=== PATIENT | male | born 1990 | race Caucasian/White ===

== ENCOUNTER 2024-09-26 20:06 | Inpatient (IN) | payer BC ==
[~2024-09-26] VITALS: Ht 185.4 cm; Wt 137.2 kg
--- NOTE | 2024-09-26 20:47 | ELECTROCARDIOGRAPH REPORT ---
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 Rk Scott Measurements Intervals [place] Rate: 143 P: 0 DE: 0 QRS: 93 QRSD: 108 T: -12 QT: 312 QTc: 481 Interpretive Statements Atrial fibrillation Borderline right axis deviation Borderline T abnormalities, inferior leads Borderline prolonged QT interval Baseline wander in lead(s) II,aVR Electronically Signed On 09-26-2024 22:41:[address] Rk Scott Please click the below link to view image of tracing.
[2024-09-26 20:58] LABS: BASOPHILS % (AUTO) 0.4 % (0-1); EOSINOPHILS # (AUTO) 0.2 X10'3 (0-0.9); HEMATOCRIT 45.7 % (42.0-52.0); HEMOGLOBIN 15.6 g/dl (14.0-17.9); LYMPHOCYTES # (AUTO) 2.8 X10'3 (1.1-4.8); MEAN CORPUSCULAR HEMOGLOBIN 29.6 PG (27.0-31.0); MEAN CORPUSCULAR HGB CONC 34.2 g/dL (33.0-36.5); MEAN CORPUSCULAR VOLUME 86.6 FL (78-98); MEAN PLATELET VOLUME 8.2 FL (7.4-10.4); MONOCYTES # (AUTO) 1.3 X10'3 (0-0.9); MONOCYTES % (AUTO) 12.3 % (2-12); NEUTROPHILS % (AUTO) 58.3 % (42-75); PLATELET COUNT 317 X10'3 (140-440); RED BLOOD COUNT 5.27 X10'6 (4.70-6.10); RED CELL DISTRIBUTION WIDTH 13.7 % (11.5-14.5); WHITE BLOOD COUNT 10.2 X10'3 (4.5-11.0)
[2024-09-26 21:14] LABS: ALANINE AMINOTRANSFERASE 53 U/L (12-78); ALBUMIN 3.7 G/DL (3.4-5.0); ALKALINE PHOSPHATASE 75 IU/L (46-116); ANION GAP 5 (8-16); ASPARTATE AMINO TRANSFERASE 16 U/L (10-37); BILIRUBIN,TOTAL 0.3 MG/DL (0.1-1.0); BLOOD UREA NITROGEN 13 MG/DL (7-18); BUN/CREATININE RATIO 12.6 (10.0-20.0); CALCIUM 8.7 MG/DL (8.5-10.1); CHLORIDE 107 MMOL/L (99-107); CREATININE 1.03 MG/DL (0.60-1.10); GLUCOSE 91 MG/DL (70-104); POTASSIUM 4.5 MMOL/L (3.5-5.1); SODIUM 141 MMOL/L (135-145); TOTAL PROTEIN 7.4 G/DL (6.4-8.2); eCRCL 114 ML/MIN; eGFR 83 ML/MIN
[2024-09-26 21:20] LABS: PRO BRAIN NATRIURETIC PEPTIDE 983 PG/ML (0-125)
--- NOTE | 2024-09-26 22:44 | Physician Documentation ---
History of Present Illness ~ Chief Complaint: Chest Pain Stated Complaint: CHEST PAIN/SOB Time Seen by MD: 22:38 OK to notify your PCP?: Yes Source: patient, RN/MD, RN notes reviewed, old records Mode of Arrival: Ambulatory Exam Limitations: no limitations HPI 34 year old male, with no significant past medical history, presents in the ED complaining of chest tightness, shortness of breath with exertion, and palpitations beginning this morning. 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 He denies history of similar symptoms. He denies excessive caffeine intake and only drinks alcohol in the weekends. Patient recently saw his primary care provider in [place], [place] and had labs done, which were apparently normal. Medication Reconciliation Allergies: Coded Allergies: Sulfa (Sulfonamide Antibiotics) (Verified Allergy, Unknown, 09/26/24) Miscellaneous Medications Home Med List (No Home Medications), (Reported) Past Medical History Past Medical History: No Pertinent History Past Surgical History: no surgical history Smoking Status: Never smoker Alcohol Use: Occasionally Drug Use: none Lives In: Home Review of Systems All Other Systems at this time: Reviewed and Negative ROS As stated above in the HPI, otherwise all systems are reviewed and negative. Physical Exam Vital Signs: RN Vital Signs have been reviewed: Yes, Temperature: 98.6, Source: Temporal, Heart Rate: 61, Respiratory Rate: 16, BP: 153/87, Pulse Oximetry: 96, Weight: 137.200 Pulse Oximetry Reflects: adequate oxygenation Physical Exam General: The patient is well developed, well nourished, nontoxic appearing and is in no acute distress. Large BMI. Skin: [place], warm and dry with no rashes. HEENT: Head was normocephalic and atraumatic. Chest: Clear to auscultation bilaterally without wheezes, rales or rhonchi. No accessory muscle use. No dullness to percussion. Heart: Irregularly irregular rhythm. Rapid rate. S1, S2. No murmurs. Palpation of the chest wall was normal. No rubs or thrills. Abdomen: Soft, nontender and nondistended. Positive bowel sounds. No guarding or rebound. Extremities: No cyanosis, clubbing or edema. The patient moves all extremities. Pulses were equal and symmetric. Neurologic: Motor and sensation grossly intact. Cranial nerves II-XII grossly intact. A & O x4. Psychologic: Normal mood and affect. No agitation. Progress Progress Note [id number]: Hospitalist paged. [id number]: admission orders placed by Dr. Haywood. Results/Orders Reviewed/noted all lab results: Yes Results/Orders Medications Received in ER Medications (Trade) Dose Ordered Sig/Farhad Route PRN Reason Start Time Stop Time Status Last Admin Dose Admin (Cardizem IV 5mg/ ml inj.) 10 mg ONCE ONCE IV 09/26/24 23:10 09/26/24 23:13 DC 09/26/24 23:26 10 MG (aspirin 81MG chew tablet) 324 mg ONCE ONCE PO 09/26/24 23:10 09/26/24 23:13 DC 09/26/24 23:24 324 MG Vital Signs 09/26/24 09/26/24 09/26/24 09/26/24 20:39 22:26 23:26 23:57 Temp 98.6 Pulse 61 129 91 Resp 15 16 22 B/P (MAP) 153/87 144/95 135/68 (90) Pulse Ox 96 96 O2 Flow Rate 0 Laboratory Tests Test 09/26/24 20:49 09/26/24 20:52 09/26/24 22:42 09/26/24 23:32 Prothrombin Time 10.3 INR International Normalized Ratio 1.0 Activated Partial Thromboplast Time 26 Coagulation Comments White Blood Count 10.2 Red Blood Count 5.27 Hemoglobin 15.6 Hematocrit 45.7 Mean Corpuscular Volume 86.6 Mean Corpuscular Hemoglobin 29.6 Mean Corpuscular Hemoglobin Concent 34.2 Red Cell Distribution Width 13.7 Platelet Count 317 Mean Platelet Volume 8.2 Neutrophils (%) (Auto) 58.3 Lymphocytes (%) (Auto) 27.0 Monocytes (%) (Auto) 12.3 H Eosinophils (%) (Auto) 2.0 Basophils (%) (Auto) 0.4 Neutrophils # (Auto) 6.0 Lymphocytes # (Auto) 2.8 Monocytes # (Auto) 1.3 H Eosinophils # (Auto) 0.2 Basophils # (Auto) 0.0 CBC Comment Sodium Level 141 Potassium Level 4.5 Chloride Level 107 Carbon Dioxide Level 29.0 Anion Gap 5 L Blood Urea Nitrogen 13 Creatinine 1.03 Estimated GFR/1.73 m2 83 BUN/Creatinine Ratio 12.6 Glucose Level 91 Calcium Level 8.7 Magnesium Level 2.0 Total Bilirubin 0.3 Aspartate Amino Transf (AST/SGOT) 16 Alanine Aminotransferase (ALT/SGPT) 53 Alkaline Phosphatase 75 Troponin I High Sensitivity 7 < 4 L 5 Pro-B-Type Natriuretic Peptide 983 H Total Protein 7.4 Albumin 3.7 Globulin 3.7 Albumin/Globulin Ratio 1.0 L Chemistry Comments Ethyl Alcohol Level < 10 Troponin I High Sens Percent Delta Troponin I Hi Sens Absolute Change Test 09/26/24 23:59 Urine Comment Drug Screen Comment EKG/XRAY/CT/US/VASC/MRI EKG : Additional Comment Test Date: 2024-09-26 Test Time: 20:45:24 Pat Name: LIVAN CROW Department: [facility] Patient ID: [facility]-[id number] 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 Derek Scott Measurements Intervals [place] Rate: 143 P: 0 SD: 0 QRS: 93 QRSD: 108 T: -12 QT: 312 QTc: 481 Interpretive Statements Atrial fibrillation Borderline right axis deviation Borderline T abnormalities, inferior leads Borderline prolonged QT interval Baseline wander in lead(s) II,aVR Electronically Signed On 09-26-2024 22:41:[address] Derek Scott (interpreted by me) Chest X-Ray : Additional Comments Clinical History CP Comparison None Without Contrast LIVAN CROW, [id number] Technique: Single view PA upright chest x-ray. Findings: The lungs are unremarkable. No pleural abnormality. The cardiomediastinal silhouette is unremarkable for an AP view. No acute osseous abnormality. The imaged part of the upper abdomen is unremarkable. Impression: No evidence of acute cardiopulmonary disease This report was electronically signed by Duke Gramajo MD on 09/26/2024 11:06:20 PM. Reviewed by me Medical Decision Making Additional info obtained from: old records (none) Departure Time of Disposition: 23:06 Disposition: 09 ADMITTED INPATIENT Admitted to Inpatient Unit: yes, to hospitalist Impression: Primary Impression: New onset atrial fibrillation Additional Impression: Atrial fibrillation with RVR Condition: Fair Signature Scribe Signature: Scribed for Derek Scott MD by Nick Mckinney . 09/26/24 23:07 Attestation: The note accurately reflects work and decisions made by me.Derek Scott MD 09/26/24 22:44 DEREK SCOTT MD Sep 26, 2024 22:44 NICK STARK Sep 26, 2024 23:12
[2024-09-26 22:57] LABS: ETHANOL < 10 MG/DL (<10)
--- NOTE | 2024-09-26 23:10 | RADIOLOGY REPORT ---
Clinical History CP Comparison None Without Contrast LIVAN CROW, [id number] Technique: Single view PA upright chest x-ray. Findings: The lungs are unremarkable. No pleural abnormality. The cardiomediastinal silhouette is unremarkable for an AP view. No acute osseous abnormality. The imaged part of the upper abdomen is unremarkable. Impression: No evidence of acute cardiopulmonary disease This report was electronically signed by Duke Gramajo MD on 09/26/2024 11:06:20 PM.
[2024-09-26] MEDS: aspirin 81mg tab.chew PO ONE (23:24)
[2024-09-26 23:25] LABS: APTT 26 SECONDS (22-32); PROTHROMBIN TIME 10.3 SECONDS (9.0-12.0)
[2024-09-26] MEDS: diltiazem 5mg/ml 5ml inj. IV ONE (23:26)
[2024-09-27] VITALS (41 sets, daily range): BP systolic 97–140; BP diastolic 57–96; PULSE 69–123; RESP 12–20; TEMP 96.9–98.7; O2SAT 95–99
[2024-09-27] MEDS ORDERED: NO HOME MEDS (00:08)
[2024-09-27 00:15] LABS: BILIRUBIN,URINE NEGATIVE (Neg); CLARITY,URINE CLEAR (Clear); COLOR,URINE YELLOW (Yellow); GLUCOSE, URINE NEGATIVE (Neg); KETONES,URINE NEGATIVE (Neg); LEUKOCYTE ESTERASE ,URINE NEGATIVE (Neg); NITRITES, URINE NEGATIVE (Neg); OCCULT BLOOD,URINE NEGATIVE (Neg); PROTEIN,URINE NEGATIVE (Neg); UROBILINOGEN,URINE 0.2 E.U/dL (0.2-1.0)
[2024-09-27 00:26] LABS: URINE AMPHETAMINE SCREEN NEGATIVE (Neg); URINE BARBITUATE SCREEN NEGATIVE (Neg); URINE BENZODIAZEPINES SCREEN NEGATIVE (Neg); URINE CANNABINOID SCREEN NEGATIVE (Neg); URINE COCAINE SCREEN NEGATIVE (Neg); URINE METHADONE SCREEN NEGATIVE (Neg); URINE OPIATE SCREEN NEGATIVE (Neg); URINE PHENCYCLIDINE SCREEN NEGATIVE (Neg)
[2024-09-27 00:28] LABS: UA COLLECTION TYPE CLN CATCH MIDSTREAM
[2024-09-27] MEDS ORDERED: magnesium hydroxide 30ml (MOM) UD suspension PO PRN (00:45)
[2024-09-27] MEDS ORDERED: morphine 2 MG/ML inj. syringe IV PRN (00:45)
[2024-09-27] MEDS ORDERED: acetaminophen 325mg tablet PO PRN (00:45)
[2024-09-27] MEDS ORDERED: ondansetron/PF 4mg/2ml inj IV PRN (00:45)
[2024-09-27] MEDS ORDERED: magnesium Cl slow-release 64mg tablet PO PRN (00:45)
[2024-09-27] MEDS ORDERED: magnesium sulf-water 4G/100mL 100 ML IV PRN (00:45)
[2024-09-27] MEDS ORDERED: potassium Cl 40MEQ/1/2NS 520ml 520 ML IV PRN (00:45)
[2024-09-27] MEDS ORDERED: mag hydrox/Alum hydrox/simeth 30ml oral suspension PO PRN (00:45)
[2024-09-27] MEDS ORDERED: potassium Cl 20 mEq SR tablet PO PRN ×2 (00:45)
[2024-09-27] MEDS ORDERED: magnesium sulf-water 2g/50mL 50 ML IV PRN (00:45)
--- NOTE | 2024-09-27 03:06 | HISTORY AND PHYSICAL-Residence ---
History & Physical Providers to CC Resident Creating Document: TULIO HAYWOOD, BUDDY ~ History of Present Illness Reason for Admit\Complaint: Afib with RVR, chest discomfort History of Present Illness 34 years old male with no significant past medical history presented to the ED with chief complaint of sudden onset chest tightness and shortness of breaths that started early in the morning today. The patient reports that he woke up, sleep having sudden onset the chest tightness mostly in the center of the chest. Patient also complains of shortness of breaths on minimal exertion that started spontaneously today. He reports that he has a severe shortness of breath even with a mild exertion such as taking 10-20 steps in his home. 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 He reports associated palpitations and feeling of heart racing. The patient denied any worsening of chest tightness with the exertion or denied any other relieving or exacerbating factors. He denied any similar complaints in the past. The patient denied any symptoms of orthopnea, paroxysmal nocturnal dyspnea. He reports that he had flu-like symptoms 3-4 weeks ago but apart from that denied any recent fever, chills, sick contacts. Patient reports that he drinks alcohol every weekend. He states that he has a episodes of binge drinking every other weekend. Last Tuesday he drank about 8- 9 glasses of whiskey. Allergies: Coded Allergies: Sulfa (Sulfonamide Antibiotics) (Verified Allergy, Unknown, 09/26/24) Home Medications Home Medications Active Reported No Home Medications (Home Med List) Each Past Medical History Past Medical History No significant medical history Past Surgical History Surgical History Comment No significant surgical history Past Social History Social History Comment Denies smoking. Drinks alcohol every weekend. Has a episodes of binge drinking during these awakens. Last Tuesday the patient had around eight and nine drinks of whiskey. Alcohol Use: Occasionally Drug Use: None Lives In: Home ROS All Other Systems: Reviewed and Negative ROS As stated above in the HPI, otherwise all systems are reviewed and negative. Exam Vitals: Vital Signs Date Time Temp Pulse Resp B/P (MAP) Pulse Ox O2 Delivery O2 Flow Rate FiO2 09/27/24 01:46 111 09/26/24 23:57 22 135/68 (90) 96 0 09/26/24 20:39 98.6 General: General: Obese male. Awake and alert. In no acute distress. HEENT: Conjunctiva pink, Sclera clear, Mucus Membranes moist. Neck: Supple without masses and tenderness. Resp: Unlabored. Lungs clear to auscultation bilaterally. Heart: Irregularly irregular rate and rhythm. No murmurs heard. Abdomen: Soft and non tender no organomegaly Extremities: No cyanosis,clubbing or edema. Skin: Warm and Dry. Neurology: No focal motor or sensory deficits noted. Diagnostic Data Last Recorded Lab Results: 09/26/24205109/26/242051 Diagnostic Data: Laboratory Tests Test 09/26/24 20:49 Prothrombin Time 10.3 SECONDS (9.0-12.0) INR International Normalized Ratio 1.0 INR Activated Partial Thromboplast Time 26 SECONDS (22-32) Coagulation Comments Advance Care Planning Advanced Care planning: Add on additional 30 min Additional Plan Non anginal chest pain Atrial fibrillation with rapid ventricular rate The patient's initial EKG was significant for atrial fibrillation with a rapid ventricular rate of 143. The patient's troponin trending X3 has been negative. He has elevated proBNP of 983. Wells criteria 1.5-low risk. Follow up with a D-dimer to rule out PE. No electrolyte abnormality noted. Urine tox negative. CHADS2 Vasc -0 He received one dose of IV Cardizem 10 mg in the ER. Patient's heart rate is currently in the 90s to 100s. He states that his chest tightness, palpitations have improved. The patient also received one dose of aspirin 325 mg in the ER. Follow up with an echocardiography for further evaluation of cardiac functioning. Follow up with the [facility]. Continue telemetry monitoring for 24 hours. Starting the patient on amiodarone 200 mg p.o. b.i.d. The patient would benefit from counseling regarding his binge alcohol drinking every weekend that could trigger the AFib. Acute respiratory distress most likely secondary to underlying congestive heart failure Patient has a elevated BNP of 983. Follow up with the echocardiogram. IV Lasix 40 mg daily. Strict input output monitoring. Recommend outpatient sleep study done for further evaluation of possible underlying obstructive sleep apnea. CODE STATUS: Full code DVT prophylaxis: Heparin 5000 units subQ b.i.d. GI prophylaxis: None Diet: Regular diet Tulio Haywood MD Internal Medicine Resident, PGY-2 Date of Service: September 27, 2024 Billing Provider: DOMINIC MANE,TULIO THORPE, RES September 27, 2024 03:06
[2024-09-27] MEDS: furosemide 40mg/4ml inj IV SCH (04:18)
[2024-09-27 06:59] LABS: D-DIMER < 0.19 MG/L FEU (0-0.50); HEMOGLOBIN A1C 5.5 % (4.5-6.2)
[2024-09-27] MEDS ORDERED: diltiazem CD 120mg capsule (once-daily) PO SCH ×2 (07:00→08:00)
[2024-09-27 07:02] LABS: MAGNESIUM 2.1 MG/DL (1.5-2.4); POTASSIUM 4.2 MMOL/L (3.5-5.1); THYROID STIMULATING HORMONE 3.58 ulU/ml (0.34-4.50)
[2024-09-27] MEDS: amiodarone 200mg tablet PO SCH (07:28)
[2024-09-27] MEDS: potassium Cl 20 mEq SR tablet PO STA (07:30)
[2024-09-27] MEDS: docusate sod 100mg capsule PO SCH (07:34)
[2024-09-27] MEDS: K and/or MAG REPLACEMENT MC SCH (08:00)
[2024-09-27] MEDS: heparin, porcine 5000 units/ml vial SQ SCH (08:00)
[2024-09-27] MEDS: diltiazem-NS 100mg/100ml 100 ML IV SCH (12:57)
[2024-09-27] MEDS: metoprolol succinate 25mg (24-HOUR) SR. Tablet PO SCH (13:00)
--- NOTE | 2024-09-27 16:56 | PROGRESS NOTE- Residence ---
Progress Note - Resident Providers to CC Resident Creating Document: REDD ADAMS, RES ~ Antibiotic Timeout Antibiotic Ordered?: No Subjective The patient has been evaluated at the bedside. The patient reports improvement of chest tightness, palpitations sensation resolved. Objective Vital Signs Date Time Temp Pulse Resp B/P (MAP) Pulse Ox O2 Delivery O2 Flow Rate FiO2 09/27/24 14:54 97.5 92 12 99/78 (85) 96 Room Air 09/26/24 23:57 0 Physical exam: General: Well alert, well oriented, not confused, not agitated, not in acute distress, well cooperated during the physical, obese male. HEENT: Conjunctive are pink, sclerae clear, no icterus, pupil is equal in both sides, reactive to light, no ear discharge, no pharyngeal erythema or an edema. Neck: Supple, no JVD, no lymphadenopathy and thyromegaly. Chest: Equal air entry on both lungs, no additional sounds no rhonchi no wheezing at the moment. Cardiovascular: S1-S2 irregular rhythm on right, no gallops, no rubs, no murmurs Abdomen: No visible peristalsis, Bowel sounds present on auscultation, soft, nontender, no guarding, no rigidity Extremities: No obvious deformities, no pitting edema bilaterally, capillary refill intact, peripheral pulsations are intact on both sides Central Nervous System: No focal neurological deficits, no motor or sensory weakness in all 4 extremities, could move all 4 extremities, 2+ deep tendon reflexes, negative Babinski. Musculoskeletal: No joint swelling, deformities, inflammations, and no scoliosis and back tenderness Skin: Warm and dry. Result Diagram: 09/26/24205109/27/24 0547 Coagulation Studies Laboratory Tests Test 09/26/24 20:49 09/27/24 05:47 Prothrombin Time 10.3 SECONDS (9.0-12.0) INR International Normalized Ratio 1.0 INR Activated Partial Thromboplast Time 26 SECONDS (22-32) Coagulation Comments D-Dimer < 0.19 MG/L FEU (0-0.50) D-Dimer Comment Assessment Assessment 34 years old male patient came to the hospital with chief complaint of chest tightness and palpitations. Plan Plan Atrial fibrillation with rapid ventricular rate: Pulmonary embolism-ruled out: CHADS2 Vasc: 0 The patient's initial EKG was significant for atrial fibrillation with a rapid ventricular rate of 143. The patient's troponin trending X3 has been negative. He has elevated proBNP of 983. Wells criteria 1.5-low risk. D-dimer within reference range. Urine toxicology and alcohol: Negative Echocardiogram LVEF 60%, RVSP 31 mmHg. Right ventricle appears mildly dilated with adequate function. TSH within reference range. The patient would benefit from counseling regarding his binge alcohol drinking every weekend that could trigger the AFib. Cardizem drip 5 mg/hour. Metoprolol succinate 25 mg daily. Recommend outpatient sleep study done for further evaluation of possible underlying obstructive sleep apnea. Congestive heart failure-ruled out: Patient has a elevated BNP of 983. The patient without signs of fluid overload. Echocardiogram LVEF 60%, RVSP 31 mmHg. Right ventricle appears mildly dilated with adequate function. Stop Lasix. Code status: Full code DVT prophylaxis: Heparin Analgesia/sedation: Morphine Line/tube: PIV GI prophylaxis: None Nutrition: Heart healthy diet. PT: No. Prognosis: Guarded Disposition: Anticipated discharge tomorrow. Redd Nguyễn Internal Medicine Resident [facility] Date of Service: September 27, 2024 Billing Provider: JAYSHREE SAHU MD Common Visit Codes: 07188-[id number] INP/OBS CARE(HIGH) REDD ADAMS, RES September 27, 2024 16:56 JAYSHREE SAHU MD September 28, 2024 19:12
--- NOTE | 2024-09-27 18:28 | CARDIOLOGY REPORT ---
APPROVED REPORT EXAM: Comprehensive 2D, Doppler, and color-flow Echocardiogram. Patient Location: [facility] Blood Pressure: 113/78 mmHg Heart Rate: 108 - 123 bpm Indications Arrhythmia ProBNP: 983 NO CIPHER EXPERT NO Prevous ECHO 2D Dimensions LA Diam3.6 cm IVSd 1.4 (0.7-1.1cm) LVDd 4.0 cm PWd 1.2 (0.7-1.1cm) IVSs 1.5 (0.8-1.2cm) LVDs 2.8 (2.5-4.0cm) PWs 1.7 (0.8-1.2cm) LVOT Diameter 2.30 (1.8-2.4cm) LVEF(%) 57.1 (>50%) IVC 9.06 mm FS (%) 29.5 % SV 40.7 ml CO 5.4 L/min M-Mode Dimensions Left Atrium(MM) 3.65 (2.5-4.0cm) Aortic Root 3.75 (2.2-3.7cm) Aortic Cusp Exc 2.55 (1.5-2.0cm) MV EPSS 0.8 (<0.5cm) Aortic Valve AoV Peak Kenneth. 101.9 cm/s AoV VTI 15.7 cm AO Peak GR. 4.2 mmHg AO Mean GR. 3 mmHg LVOT VTI 16.14 cm LVOT Peak Kenneth. 86.1 cm/s HIRAM(VTI)/BSA 4.27 cm2/m2 HIRAM (VTI) 4.27 cm2 Mitral Valve MV E Velocity 56.2 cm/s MV Peak Gr. 1 mmHg MV DECEL TIME 232 ms MV A Velocity 20.5 cm/s MV PHT 48 ms E/A Ratio 2.7 MVA (PHT) 4.58 cm2 MV VMax43.3 cm/s TDI Lateral E' P. V8.00 cm/s E/Lateral E' 7.0 Tricuspid Valve TR P. Velocity 229 cm/s RAP ESTIMATE 10 mmHg TR Peak Gr. 21 mmHg RVSP 31 mmHg LEFT VENTRICLE Normal LV size and function. Mild concentric hypertrophy. LVEF is 60%. RIGHT VENTRICLE Right ventricle appears mildly dilated with adequate function. ATRIA The left atrium size is normal. AORTIC VALVE Trileaflet AV appears mildly sclerotic without stenosis. No insufficiency. MITRAL VALVE Mitral valve leaflets are mildly thickened with mild annular calcification. No stenosis. Trace regurg itation. TRICUSPID VALVE Tricuspid valve is grossly normal in structure with trace regurgitation. PULMONIC VALVE The pulmonary valve is normal in structure with physiologic insufficiency. GREAT VESSELS The aortic root is normal in size. The IVC is normal in size and collapses >50% with inspiration. PERICARDIUM Normal pericardium. No effusion. Other Information Study Quality: Adequate Conclusion Normal LV size and function. Mild concentric hypertrophy. LVEF is 60%. Right ventricle appears mildly dilated with adequate function. The left atrium size is normal. Trileaflet AV appears mildly sclerotic without stenosis. No insufficiency. Mitral valve leaflets are mildly thickened with mild annular calcification. No stenosis. Trace regu rgitation. Tricuspid valve is grossly normal in structure with trace regurgitation. Normal pericardium. No effusion.
[2024-09-28] VITALS (24 sets, daily range): BP systolic 64–110; BP diastolic 41–82; PULSE 74–100; RESP 14–20; TEMP 97.1–97.4; O2SAT 95–96
[2024-09-28 07:28] LABS: BASOPHILS # (AUTO) 0.1 X10'3 (0-0.2); BASOPHILS % (AUTO) 0.6 % (0-1); EOSINOPHILS # (AUTO) 0.2 X10'3 (0-0.9); EOSINOPHILS % (AUTO) 2.5 % (0-6); HEMATOCRIT 47.1 % (42.0-52.0); HEMOGLOBIN 16.2 g/dl (14.0-17.9); LYMPHOCYTES # (AUTO) 1.9 X10'3 (1.1-4.8); LYMPHOCYTES % (AUTO) 20.7 % (21-51); MEAN CORPUSCULAR HEMOGLOBIN 29.5 PG (27.0-31.0); MEAN CORPUSCULAR HGB CONC 34.4 g/dL (33.0-36.5); MEAN PLATELET VOLUME 8.9 FL (7.4-10.4); NEUTROPHILS % (AUTO) 65.2 % (42-75); PLATELET COUNT 315 X10'3 (140-440); RED BLOOD COUNT 5.48 X10'6 (4.70-6.10); RED CELL DISTRIBUTION WIDTH 13.7 % (11.5-14.5); WHITE BLOOD COUNT 9.1 X10'3 (4.5-11.0)
[2024-09-28] MEDS: diltiazem 30mg tablet PO SCH (08:07)
[2024-09-28 08:15] LABS: ALANINE AMINOTRANSFERASE 43 U/L (12-78); ALBUMIN 3.5 G/DL (3.4-5.0); ALKALINE PHOSPHATASE 70 IU/L (46-116); ANION GAP 8 (8-16); BILIRUBIN,TOTAL 0.7 MG/DL (0.1-1.0); BLOOD UREA NITROGEN 16 MG/DL (7-18); BUN/CREATININE RATIO 18.8 (10.0-20.0); CALCIUM 8.8 MG/DL (8.5-10.1); CHLORIDE 105 MMOL/L (99-107); CREATININE 0.85 MG/DL (0.60-1.10); GLUCOSE 96 MG/DL (70-104); MAGNESIUM 2.1 MG/DL (1.5-2.4); PRO BRAIN NATRIURETIC PEPTIDE 507 PG/ML (0-125); SODIUM 138 MMOL/L (135-145); TOTAL CARBON DIOXIDE 24.6 MMOL/L (24-32); TOTAL PROTEIN 7.1 G/DL (6.4-8.2); eCRCL 138 ML/MIN; eGFR > 90 ML/MIN
[2024-09-28 08:22] LABS: ASPARTATE AMINO TRANSFERASE 24 U/L (10-37); POTASSIUM 4.6 MMOL/L (3.5-5.1)
[2024-09-28] MEDS ORDERED: DILT30TA2 PO (13:53)
[2024-09-28] MEDS ORDERED: METO-395 PO (13:53)
--- NOTE | 2024-09-28 19:58 | DISCHARGE SUMMARY-Residence ---
Discharge Summary Providers to CC Resident Creating Document: MOR MCCALLZAN ROSENDA, RES ~ Discharge Summary Admission Diagnosis: New onset Afib with RVR Hospital Course DATE OF ADMISSION: 09/27/2024 DATE OF DISCHARGE: 09/28/2024 Laboratory: WBC 9.1, RBC 5.48, hemoglobin 16.2, hematocrit 47.1, MCV 86, sodium 138, potassium 4.6, chloride 105, carbon dioxide 24.6, anion gap eight, BUN 16, creatinine 0.85, GFR more than 90, glucose 96, A1c 5.5. Imaging: Echocardiogram: LVEF 60%, RVSP: 31 mmHg. Left ventricle: Mild concentric hypertrophy. Right ventricle appears mildly dilated with adequate function. Chest x-ray: No evidence of acute cardiopulmonary disease. Discharge Diagnosis\Comment: Atrial fibrillation with rapid ventricular rate Pulmonary embolism-ruled out: CHADS2 Vasc: 0 Congestive heart failure-ruled out Operations\Procedures: None Consultants: None Complications: None Condition on DC: Stable New Medications: Diltiazem HCl (Diltiazem HCl) 30 Mg Tablet 60 MG PO TID for 30 Days, #90 TAB Metoprolol Succinate (Metoprolol Succinate) 25 Mg Tab.sr.24h 25 MG PO DAILY for 30 Days, #30 TAB.SR Continued Medications: Home Med List (No Home Medications) Each Discharge Summary: HPI: 34 years old male with no significant past medical history presented to the ED with chief complaint of sudden onset chest tightness and shortness of breaths that started early in the morning today. The patient reports that he woke up, sleep having sudden onset the chest tightness mostly in the center of the chest. Patient also complains of shortness of breaths on minimal exertion that started spontaneously today. He reports that he has a severe shortness of breath even with a mild exertion such as taking 10-20 steps in his home. 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 He reports associated palpitations and feeling of heart racing. The patient denied any worsening of chest tightness with the exertion or denied any other relieving or exacerbating factors. He denied any similar complaints in the past. The patient denied any symptoms of orthopnea, paroxysmal nocturnal dyspnea. He reports that he had flu-like symptoms 3-4 weeks ago but apart from that denied any recent fever, chills, sick contacts. Patient reports that he drinks alcohol every weekend. He states that he has a episodes of binge drinking every other weekend. Last Tuesday he drank about 8- 9 glasses of whiskey. Hospital course: 34 years old male patient came to the hospital with chief complaint of chest tightness and shortness of breath. AFib with RVR was evidenced. The patient was started on Cardizem drip and beta-blockers. The patient converted to sinus on 09/28/2024. The patient remained hemodynamically stable chads Vasc score is 0. The patient does not require anticoagulation. The patient will be discharged. Discharge course: The patient remained hemodynamically stable. The patient will be discharged with the following instructions: Come back to the emergency department or call 911 if palpitations, chest pain, shortness of breath is evidenced. Take Cardizem one tablet of 60 mg every 8 hours. Take metoprolol succinate 25 mg daily. Recommended sleep study for obstructive sleep apnea. Follow-up with your primary care physician within 15 days. Strong recommendation for losing weight. Vital Signs Date Time Temp Pulse Resp B/P (MAP) Pulse Ox O2 Delivery O2 Flow Rate FiO2 09/28/24 10:00 97.1 78 19 105/79 (88) 96 Room Air 09/28/24 08:15 0.0 Physical exam: General: Well alert, well oriented, not confused, not agitated, not in acute distress, well cooperated during the physical, obese male. HEENT: Conjunctive are pink, sclerae clear, no icterus, pupil is equal in both sides, reactive to light, no ear discharge, no pharyngeal erythema or an edema. Neck: Supple, no JVD, no lymphadenopathy and thyromegaly. Chest: Equal air entry on both lungs, no additional sounds no rhonchi no wheezing at the moment. Cardiovascular: S1-S2 regular rhythm and rate, no gallops, no rubs, no murmurs Abdomen: No visible peristalsis, Bowel sounds present on auscultation, soft, nontender, no guarding, no rigidity Extremities: No obvious deformities, no pitting edema bilaterally, capillary refill intact, peripheral pulsations are intact on both sides Central Nervous System: No focal neurological deficits, no motor or sensory weakness in all 4 extremities, could move all 4 extremities, 2+ deep tendon reflexes, negative Babinski. Musculoskeletal: No joint swelling, deformities, inflammations, and no scoliosis and back tenderness Skin: Warm and dry. *Problems/Diagnosis: (1) New onset atrial fibrillation Status: Resolved (2) Atrial fibrillation with RVR Status: Resolved Total Time Spent on D/C: Up to 30 Minutes Date of Service: September 28, 2024 Billing Provider: JAYSHREE SAHU MD Common Visit Codes: 14999-CCU/OBS DISCH DAY >30min ZAN ADAMS, RES September 28, 2024 19:58 JAYSHREE SAHU MD September 28, 2024 20:20
== END 2024-09-28 14:32 | disposition home or self-care (01) | DRG 310 ==
LOC: ER 20:08 → ED HOLD 23:49 → PCU 3S 09-27 01:35
PROVIDERS: ADMIT Internal Medicine Critical Care Medicine; ATTEND Internal Medicine
DX: I48.91 Unspecified atrial fibrillation (principal); R07.89 Other chest pain; Z79.899 Other long term (current) drug therapy; Z88.2 Allergy status to sulfonamides
CPT/HCPCS: 36415; 71045; 80053; 80305; 80320; 81003; 83036; 83735; 83880; 84100; 84132; 84443; 84484; 85025; 85379; 85610; 85730; 87081; 93005; 93306; 96374; 99285; G0378; J1644; J1940; J3490